=== PATIENT | female | born 1965 | race Caucasian/White ===

== ENCOUNTER 2018-01-14 07:25 | Day surgery (SDC) | payer OTHER ==
[2018-01-14] MEDS ORDERED: MIDAZOLAM 1 MG/ML 2 ML INJ (09:33)
[2018-01-14] MEDS ORDERED: FENTAnyl 50 MCG/ML VIAL (09:33)
== END 2018-01-14 10:11 | disposition home or self-care (01) ==
LOC: GIL 07:25
DX: Z12.11 Encounter for screening for malignant neoplasm of colon (principal); K57.90 Diverticulosis of intestine, part unspecified, without perforation or abscess without bleeding; K64.4 Residual hemorrhoidal skin tags; K64.8 Other hemorrhoids
CPT/HCPCS: 45380; 88305